=== PATIENT | male | born 1985 | race Caucasian/White ===

== ENCOUNTER 2017-08-24 07:43 | Day surgery (SDC) | payer OTHER ==
[~2017-08-24] VITALS: Ht 180.3 cm; Wt 82.6 kg
[~2017-08-24 07:43] MED LIST: HARVONI 90-4001 EACH; Omeprazole20 M1
[2017-08-24] MEDS ORDERED: IBUP400 (08:19)
[2017-08-24] MEDS ORDERED: MULTI VITAMIN1 EACH (08:20)
== END 2017-08-24 09:47 | disposition home or self-care (01) ==
LOC: ORSCSDS 07:43
PROVIDERS: Internal Medicine Gastroenterology
PROC: 0DB68ZX Excision of Stomach, Via Natural or Artificial Opening Endoscopic, Diagnostic (ICD-10-PCS; principal; 2017-08-24 09:00)
PROC: 0D758ZZ Dilation of Esophagus, Via Natural or Artificial Opening Endoscopic (ICD-10-PCS; principal; 2017-08-24 09:00)
DX: R13.10 Dysphagia, unspecified (principal); K21.9 Gastro-esophageal reflux disease without esophagitis; B19.20 Unspecified viral hepatitis C without hepatic coma; Z87.891 Personal history of nicotine dependence; K29.70 Gastritis, unspecified, without bleeding; K29.80 Duodenitis without bleeding; Z79.899 Other long term (current) drug therapy
CPT/HCPCS: 88305; 88342; C1726; J0330; J1980; J2405; J7120

== ENCOUNTER 2017-11-01 12:13 | Emergency (ER) | payer OTHER ==
[~2017-11-01] VITALS: Ht 442 cm; Wt 84.4 kg
[~2017-11-01 12:13] MED LIST changes: +IBUP400; +MULTI VITAMIN1 EACH
== END 2017-11-01 15:35 | disposition home or self-care (01) ==
LOC: ER 12:13
DX: R51 Headache (principal); F43.9 Reaction to severe stress, unspecified; Z90.49 Acquired absence of other specified parts of digestive tract; Z98.890 Other specified postprocedural states
CPT/HCPCS: 70450; 96372; 99284; J1170; J1885

== ENCOUNTER → 2020-05-28 | Outpatient (CLI) | payer OTHER ==
[2020-05-28 18:44] LABS: Alanine Aminotransfer (ALT/SGP 49 U/L (12-78); Albumin, Blood 3.8 g/dL (3.4-5.0); Albumin/Globulin Ratio 1.2 (0.8-1.8); Alk Phos 113 U/L (50-136); Anion Gap 7 mmol/L (6-16); Aspartate Aminotrans (AST/SGOT 40 U/L (12-37); Bilirubin, Total 0.7 mg/dL (0.1-1.0); Blood Urea Nitrogen 8 mg/dL (8-24); Bun/Creatinine Ratio 9.3 (12.0-20.0); CO2, Blood 27 mmol/L (21-32); Chloride, Blood 106 mmol/L (98-108); Creatinine, Blood 0.86 mg/dL (0.60-1.20); Globulin, Blood 3.3 g/dL (2.2-4.0); Glomerular Filtration Rate >60 (60-); Glucose, Blood 77 mg/dL (70-99); Potassium, Blood 4.1 mmol/L (3.5-5.5); Sodium, Blood 140 mmol/L (136-145); Total Protein, Blood 7.1 g/dL (6.4-8.2)
== END | disposition home or self-care (01) ==
LOC: LAB 15:05 → LAB SHORT 15:05
PROVIDERS: Physician Assistant
DX: B18.2 Chronic viral hepatitis C (principal)
CPT/HCPCS: 80053